=== PATIENT | female | born 1980 | race Caucasian/White ===

== ENCOUNTER 2020-08-19 13:57 | Emergency (ER) | payer SELFPAY ==
[~2020-08-19] VITALS: Ht 157.5 cm; Wt 56.8 kg
[2020-08-19 14:47] VITALS: BP 108/70
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
== END 2020-08-19 14:47 | disposition short-term general hospital (02) ==
LOC: ER 13:57
DX: S00.83XA Contusion of other part of head, initial encounter (principal); T74.21XA Adult sexual abuse, confirmed, initial encounter; R10.2 Pelvic and perineal pain; F31.9 Bipolar disorder, unspecified; F17.200 Nicotine dependence, unspecified, uncomplicated; Z88.0 Allergy status to penicillin; Z91.018 Allergy to other foods; Y93.89 Activity, other specified; Y92.89 Other specified places as the place of occurrence of the external cause; Y99.8 Other external cause status
CPT/HCPCS: 99285

== ENCOUNTER 2021-02-22 11:00 | Emergency (ER) | payer SELFPAY ==
[~2021-02-22] VITALS: Ht 157.5 cm; Wt 55.0 kg
[2021-02-22] MEDS ORDERED: MORPHINE SULFATE 4 MG/ML INJ. IVP ONE (12:00)
[2021-02-22] MEDS ORDERED: ONDANSETRON PF 4 MG/2 ML VIAL. IVP ONE (12:00)
[2021-02-22 12:19] LABS: BASO # 0.1 x10^3/uL (0.0-0.2); BASO % 1 % (0-3); EOS # 0.1 x10^3/uL (0.0-0.7); EOS % 1 % (0-3); HEMATOCRIT 37.6 % (36.0-47.0); LYMPH # 2.1 x10^3/uL (1.0-4.8); LYMPH % 25 % (24-48); MEAN CORPUSCULAR HEMOGLOBIN 33 pg (25-35); MEAN CORPUSCULAR HGB CONC 35 g/dL (31-37); MEAN CORPUSCULAR VOLUME 95 fL (79-100); MONO # 0.6 x10^3/uL (0.0-1.1); MONO % 7 % (0-9); NEUT # 5.6 x10^3/uL (1.8-7.7); NEUT % 66 % (31-73); PLATELET COUNT 388 x10^3/uL (140-400); RED BLOOD COUNT 3.97 x10^6/uL (3.50-5.40); WHITE BLOOD COUNT 8.5 x10^3/uL (4.0-11.0)
[2021-02-22 12:29] LABS: CREATININE 0.5 mg/dL (0.6-1.0); GFR 137.4; POTASSIUM 3.3 mmol/L (3.5-5.1)
[2021-02-22 12:35] LABS: ALBUMIN 4.4 g/dL (3.4-5.0); C-REACTIVE PROTEIN 1.5 mg/L (0-3.3); TOTAL BILIRUBIN 0.4 mg/dL (0.2-1.0)
[2021-02-22] MEDS ORDERED: CONTRAST GIVEN. MC PRN (12:45)
[2021-02-22] MEDS ORDERED: IOHEXOL 300 MG/ML 100ML VIAL. IV ONE (13:00)
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
[2021-02-22 13:52] VITALS: BP 122/82
[2021-02-22 14:00] LABS: BILIRUBIN,URINE NEGATIVE (NEG); CLARITY,URINE CLEAR; COLOR,URINE YELLOW; NITRITE,URINE NEGATIVE (NEG); PROTEIN,URINE NEGATIVE (NEG-TRACE)
[2021-02-22] MEDS ORDERED: METH4TAB2 PO (14:11)
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
[2021-02-22] MEDS ORDERED: methylPREDNISolone SOD SUCC PF 125 MG/2 ML VIAL. IV ONE (14:15)
[2021-02-22 14:24] LABS: BACTERIA,URINE FEW /HPF (0-FEW); RBC,URINE >40 /HPF (0-2)
== END 2021-02-22 14:48 | disposition home or self-care (01) ==
LOC: ER 11:00
DX: R10.32 Left lower quadrant pain (principal); F31.9 Bipolar disorder, unspecified; Z90.710 Acquired absence of both cervix and uterus; Z98.51 Tubal ligation status; Z88.0 Allergy status to penicillin; Z91.018 Allergy to other foods; Z88.6 Allergy status to analgesic agent
CPT/HCPCS: 36415; 74177; 80053; 81001; 81025; 83690; 85025; 85651; 86140; 96374; 96375; 99285; J2270; J2405; J2930; Q9967